=== PATIENT | female | born 1955 | race Caucasian/White ===

== ENCOUNTER 2017-05-14 10:11 | Day surgery (SDC) | payer BC ==
[~2017-05-14] VITALS: Ht 149.9 cm; Wt 80.2 kg
[2017-05-14 11:15] VITALS: Ht 149.9 cm; Wt 80.2 kg
[2017-05-14] MEDS ORDERED: PROPOFOL 20 ML ONE (11:18)
[2017-05-14] MEDS ORDERED: LIDOCAINE 2% (SDV) 5 ML INJ ONE (11:19)
[2017-05-14] MEDS ORDERED: MIDAZOLAM 1 MG/ML 2 ML INJ ONE (11:19)
[2017-05-14] MEDS ORDERED: SERT50TA PO (11:38)
[2017-05-14] MEDS ORDERED: LOSA1TAB21 PO (11:38)
[2017-05-14] MEDS ORDERED: MELO-109 PO (11:38)
[2017-05-14] MEDS ORDERED: MECL-77 PO (11:38)
[2017-05-14 11:47] VITALS: BP 129/70; PULSE 71; RESP 16
[2017-05-14 12:39] VITALS: BP 126/68; PULSE 59; RESP 22
--- NOTE | 2017-05-18 09:41 | GILP ---
DATE OF PROCEDURE: 05/14/2017 PROCEDURE PERFORMED: Colonoscopy. SURGEON: Danie Alcazar MD PREOP DIAGNOSIS: Screening colonoscopy. POSTOP DIAGNOSES: 1. Colonoscopy all the way to the cecum. 2. Internal hemorrhoids. 3. No colon neoplasm was identified. 4. Diverticulosis of the colon. INDICATION FOR THE PROCEDURE: Ms Linnette Hollingsworth is a 61-year-old female patient who was scheduled for screening colonoscopy. The procedure and possible complications were well explained to the patient. The patient understood and consented to the procedure. DESCRIPTION OF PROCEDURE: Under influence of anesthesia, the colonoscope was carefully introduced in the rectum. Under direct vision it was advanced all the way to the cecum. Findings: The patient had occasional diverticulosis of the colon. She also had internal hemorrhoids. No colon neoplasm was identified. The patient tolerated the procedure very well. There was no complication from the procedure. At the end of procedure she was awake with stable vital signs and she was discharged home to the care of her family. IMPRESSION: 1. Colonoscopy all the way to the cecum. 2. Occasional diverticulosis of the colon. 3. Internal hemorrhoids. 4. No colon neoplasm was identified. PLAN: Next screening colonoscopy in 10 years. Dictated By: MD CARO Abel/alexi/[email or web address] /Document#: [id number]
== END 2017-05-14 16:38 | disposition home or self-care (01) ==
LOC: GIL 10:11
PROVIDERS: ATTEND Internal Medicine Gastroenterology
DX: Z12.11 Encounter for screening for malignant neoplasm of colon (principal); K64.8 Other hemorrhoids; K57.90 Diverticulosis of intestine, part unspecified, without perforation or abscess without bleeding; I10 Essential (primary) hypertension; E66.9 Obesity, unspecified; Z68.35 Body mass index [BMI] 35.0-35.9, adult
CPT/HCPCS: 45378; J2250; Z7610